=== PATIENT | male | born 1965 | race Caucasian/White ===

== ENCOUNTER → 2017-05-19 | Outpatient (CLI) | payer BC ==
[~2017-05-19] MED LIST: CARV3.12 PO; CARV6.25 PO; LVQ750; OXYC-643; SPIR1TAB72 PO
--- NOTE | 2017-05-19 14:10 | DIAGNOSTIC IMAGING REPORT ---
CHEST 2 VIEWS ROUTINE HISTORY: FEVER, COUGH COMPARISON: Chest 09/19/1716. FINDINGS: The lungs are clear. Cardiac silhouette is normal in size. No pleural effusions. No pneumothorax. Low lung volumes. IMPRESSION: No acute process. Electronically signed by: Alexandre Del Real M.D. 05/19/2017 2:08 PM Dictated Date/Time: 05/19/2017 2:07 PM
== END ==
LOC: C.RAD 13:29
PROVIDERS: ATTEND Nurse Practitioner Family
DX: R50.9 Fever, unspecified (principal); R05 Cough